=== PATIENT | male | born 1970 | race Caucasian/White ===

== ENCOUNTER 2022-02-16 20:15 | Inpatient (IN) | payer MEDICAID ==
[~2022-02-16] VITALS: Ht 175.3 cm; Wt 95.3 kg
[2022-02-16] MEDS ORDERED: NITROGLYCERIN OINT 1GM/INCH UDPKT TD ONE (21:45)
[2022-02-16] MEDS ORDERED: CLOPIDOGREL 75MG TABLET PO ONE (21:45)
[2022-02-16] MEDS ORDERED: HYDROCODONE/ACETAMINOPHEN 5/325MG TABLET PO STA (21:45)
[2022-02-16] MEDS ORDERED: METOPROLOL TARTRATE 25MG TABLET PO ONE (21:45)
[2022-02-16] MEDS ORDERED: ASPIRIN 81MG TABLET PO ONE (21:45)
[2022-02-16 22:20] LABS: CHLORIDE 100 mEq/L (98-107)
[2022-02-16 22:34] LABS: EOSINOPHILS % 2.5 % (0.0-5.0); HEMATOCRIT. 39.5 % (42.0-52.0); HEMOGLOBIN. 14.4 g/dL (14.0-18.0); LYMPHOCYTES % 14.6 % (20.0-50.0); MEAN CORPUSCULAR HEMOGLOBIN 30.4 pg (28.0-32.0); MEAN CORPUSCULAR VOLUME 83.2 fL (80.0-94.0); MEAN PLATELET VOLUME 8.8 fl (7.4-10.4); MONOCYTES % 10.2 % (2.0-8.0); NEUTROPHILS % 71.7 % (40.0-76.0); PLATELET 210 x1000/uL (130-400); RED BLOOD CELL COUNT 4.75 mill/uL (4.7-6.1); RED CELL DISTRIBUTION WIDTH 12.9 % (11.6-14.6)
[2022-02-17] MEDS ORDERED: CLOPIDOGREL 75MG TABLET PO NR (02:15)
[2022-02-17] MEDS ORDERED: METOPROLOL TARTRATE 25MG TABLET PO NR (02:15)
[2022-02-17] MEDS ORDERED: ASPIRIN 81MG TABLET PO NR (02:15)
[2022-02-17] MEDS ORDERED: HYDROCODONE/ACETAMINOPHEN 5/325MG TABLET PO NR (02:15)
[2022-02-17] MEDS ORDERED: NITROGLYCERIN OINT 1GM/INCH UDPKT TD NR (02:15)
[2022-02-17] MEDS ORDERED: ONDANSETRON HCL 4MG/2ML INJ IV PRN (06:30)
[2022-02-17] MEDS ORDERED: CLONIDINE 0.1MG TABLET PO PRN (06:30)
[2022-02-17] MEDS ORDERED: DOCUSATE SODIUM 100MG CAPSULE PO PRN (06:30)
[2022-02-17] MEDS ORDERED: MORPHINE SULFATE 2 MG/ML CPJ (NOT FOR IM USE) IV PRN (06:30)
[2022-02-17] MEDS ORDERED: HYDROCODONE/ACETAMINOPHEN 5/325MG TABLET PO PRN (06:30)
[2022-02-17] MEDS ORDERED: ACETAMINOPHEN 325MG TABLET PO PRN (06:30)
[2022-02-17] MEDS ORDERED: GUAIFENESIN 200MG/10ML SUGAR FREE UDC PO PRN (06:30)
[2022-02-17] MEDS: ENOXAPARIN 40MG/0.4ML SYR SUBCUT SCH (09:00)
[2022-02-17] MEDS: METOPROLOL TARTRATE 25MG TABLET PO SCH ×2 (09:00→23:38)
[2022-02-17 12:00] VITALS: BP 143/68
[2022-02-17] MEDS ORDERED: NALOXONE HCL 0.4MG/ML VIAL IV PRN (12:00)
[2022-02-17 12:07] LABS: CREATINE KINASE MB FRACTION 1.4 ng/mL (0.5-3.6)
[2022-02-17 12:54] VITALS: BP 143/68
[2022-02-17] MEDS ORDERED: CLOP-31 MT (14:19)
[2022-02-17] MEDS ORDERED: METO-396 MT (14:21)
[2022-02-17] MEDS ORDERED: METF-414 MT (14:21)
[2022-02-17 16:00] VITALS: BP 116/58
[2022-02-17] MEDS ORDERED: DEXTROSE 50% WATER 50ML SYRINGE IV PRN (19:00)
[2022-02-17 20:00] VITALS: BP 122/60
[2022-02-17] MEDS: BLOOD SUGAR DIAGNOSTIC STRIP TEST SCH (21:00)
[2022-02-17] MEDS: ATORVASTATIN CALCIUM 20MG TABLET PO SCH (23:38)
[2022-02-17] MEDS: INSULIN LISPRO 100 UNITS/ML SUBCUT SCH (23:39)
[2022-02-18] VITALS: BP 130/73
[2022-02-18 04:00] VITALS: BP 133/82
[2022-02-18] MEDS: BLOOD SUGAR DIAGNOSTIC STRIP TEST SCH ×4 (06:30→20:49)
[2022-02-18] MEDS: INSULIN LISPRO 100 UNITS/ML SUBCUT SCH ×4 (06:30→20:43)
[2022-02-18 08:00] VITALS: BP 142/75
[2022-02-18] MEDS: ASPIRIN 81MG EC TABLET PO SCH (08:51)
[2022-02-18] MEDS: CLOPIDOGREL 75MG TABLET PO SCH (08:52)
[2022-02-18] MEDS: AMLODIPINE 10MG TABLET PO SCH (08:52)
[2022-02-18] MEDS: METOPROLOL TARTRATE 25MG TABLET PO SCH ×2 (08:53→20:42)
[2022-02-18] MEDS: ENOXAPARIN 40MG/0.4ML SYR SUBCUT SCH (08:53)
[2022-02-18] MEDS: METFORMIN HCL 850MG TABLET PO SCH (17:21)
[2022-02-18 20:00] VITALS: BP 116/73
[2022-02-18] MEDS: ATORVASTATIN CALCIUM 20MG TABLET PO SCH (20:42)
[2022-02-19] VITALS: BP 135/73
[2022-02-19 04:00] VITALS: BP 142/73
[2022-02-19] MEDS: BLOOD SUGAR DIAGNOSTIC STRIP TEST SCH ×4 (06:27→21:23)
[2022-02-19] MEDS: INSULIN LISPRO 100 UNITS/ML SUBCUT SCH ×4 (07:10→21:23)
[2022-02-19 08:00] VITALS: BP 132/68
[2022-02-19] MEDS: AMLODIPINE 10MG TABLET PO SCH ×2 (09:00→09:10)
[2022-02-19] MEDS: METFORMIN HCL 850MG TABLET PO SCH ×2 (09:10→16:59)
[2022-02-19] MEDS: ENOXAPARIN 40MG/0.4ML SYR SUBCUT SCH (09:10)
[2022-02-19] MEDS: CLOPIDOGREL 75MG TABLET PO SCH (09:11)
[2022-02-19] MEDS: METOPROLOL TARTRATE 25MG TABLET PO SCH ×2 (09:11→21:22)
[2022-02-19] MEDS: ASPIRIN 81MG EC TABLET PO SCH (09:11)
[2022-02-19 12:00] VITALS: BP 130/79
[2022-02-19] MEDS: ARIPIPRAZOLE 5MG TABLET PO SCH (14:44)
[2022-02-19 16:00] VITALS: BP 122/68
[2022-02-19 20:19] VITALS: BP 118/66
[2022-02-19] MEDS: ATORVASTATIN CALCIUM 20MG TABLET PO SCH (21:22)
[2022-02-20] VITALS: BP 101/76
[2022-02-20 00:04] VITALS: BP 101/76
[2022-02-20 04:00] VITALS: BP 126/63
[2022-02-20] MEDS: BLOOD SUGAR DIAGNOSTIC STRIP TEST SCH ×2 (06:40→12:01)
[2022-02-20] MEDS: INSULIN LISPRO 100 UNITS/ML SUBCUT SCH ×2 (07:10→12:20)
[2022-02-20 08:00] VITALS: BP 119/68
[2022-02-20] MEDS: CLOPIDOGREL 75MG TABLET PO SCH (09:06)
[2022-02-20] MEDS: METFORMIN HCL 850MG TABLET PO SCH (09:06)
[2022-02-20] MEDS: ARIPIPRAZOLE 5MG TABLET PO SCH (09:06)
[2022-02-20] MEDS: ENOXAPARIN 40MG/0.4ML SYR SUBCUT SCH (09:06)
[2022-02-20] MEDS: AMLODIPINE 10MG TABLET PO SCH (09:06)
[2022-02-20] MEDS: ASPIRIN 81MG EC TABLET PO SCH (09:06)
[2022-02-20] MEDS: METOPROLOL TARTRATE 25MG TABLET PO SCH (09:07)
[2022-02-20 12:28] VITALS: BP 119/68
[2022-02-20 16:10] VITALS: BP 121/71
== END 2022-02-20 16:40 | disposition home or self-care (01) | DRG 203 ==
LOC: ER 20:15 → MICUSO 22:04 → 7EST 02-17 11:45
PROVIDERS: ADMIT Hospitalist; ATTEND Hospitalist
DX: M94.0 Chondrocostal junction syndrome [Tietze] (principal); E11.65 Type 2 diabetes mellitus with hyperglycemia; E66.9 Obesity, unspecified; I25.10 Atherosclerotic heart disease of native coronary artery without angina pectoris; I10 Essential (primary) hypertension; F31.9 Bipolar disorder, unspecified; E78.5 Hyperlipidemia, unspecified; F31.60 Bipolar disorder, current episode mixed, unspecified; Z83.3 Family history of diabetes mellitus; Z79.899 Other long term (current) drug therapy; Z68.31 Body mass index [BMI] 31.0-31.9, adult
CPT/HCPCS: 36415; 71045; 80053; 82550; 82553; 82962; 83735; 83880; 84443; 84484; 85025; 93005; 93306; 93970; 99291; J1650; J1815